=== PATIENT | female | born 1995 | race Caucasian/White ===

== ENCOUNTER 2019-08-27 10:22 | Outpatient (CLI) | payer OTHER, SELFPAY ==
[2019-08-27 10:59] LABS: Basophils Absolute Auto 0.1 K/mm3 (0.0-0.1); Basophils Percent Auto 0.7 % (0.2-1.2); Eosinophils Absolute Auto 0.1 K/mm3 (0-0.3); Eosinophils Percent Auto 1.2 % (0-4.4); Hematocrit 41.9 % (37.0-47.0); Hemoglobin 14.2 g/dL (12.0-15.0); Immature Granulocyte Absolute 0.04 K/mm3 (0.00-0.031); Immature Granulocyte Percent A 0.5 % (0-0.5); Mean Corpuscular HGB Conc 33.9 g/dl (32-36); Mean Corpuscular Hemoglobin 29.6 pg (26-34); Mean Corpuscular Volume 87.5 fl (80-100); Mean Platelet Volume 10.3 fl (7.4-10.4); Monocytes Absolute Auto 0.4 K/mm3 (0.1-0.6); Neutrophils Absolute Auto 4.8 K/mm3 (1.3-6.7); Neutrophils Percent Auto 65.6 % (45.5-73.1); Platelet Count Result 249 k/mm3 (150-375); Red Blood Count 4.79 M/mm3 (4.2-5.4); Red Cell Distribution Width 12.4 % (11.5-14.5); White Blood Count 7.3 K/mm3 (4.5-10.0)
[2019-08-27 11:07] LABS: Add Urine Microscopic? YES; Appearance Urine Clear (Clear); Bacteria Urine Trace /hpf; Bilirubin Urine Negative (Negative); Blood Urine Negative (Negative); Color Urine Straw (Yellow); Glucose Urine UA Negative (Negative); Ketones Urine Negative (Negative); Leukocyte Esterase Ur Negative LEU/UL (NEGATIVE); Mucus Urine Rare /lpf; Nitrate Urine Negative (Negative); Protein Urine Negative (Negative); RBC Urine 0-2 /hpf (0-2); Specific Grav Ur 1.015 (1.001-1.035); Squamous Epithelial Cell Urine Few /hpf (Few); Urobilinogen Urine Negative mg/dL (<2.0); WBC Urine 0-3 /hpf (0-3)
[2019-08-27 11:19] LABS: Alanine Aminotransferase 15 U/L (4-35); Albumin Level 4.9 g/dL (3.5-5.1); Alkaline Phosphatase 68 U/L (38-126); Aspartate Amino Transferase 21 U/L (14-36); Bilirubin,Total 0.4 mg/dL (0.2-1.3); Blood Urea Nitrogen 13 mg/dL (7-17); Calcium 9.3 mg/dL (8.4-10.2); Carbon Dioxide 28 mmol/L (22-30); Chloride 101 mmol/L (98-107); Cholesterol 156 mg/dL (0-200); Estimated Glomerular Filt Rate > 60; Glucose 89 mg/dL (65-105); HDL Direct 48 mg/dL; Potassium 4.1 mmol/L (3.4-5.0); Sodium 137 mmol/L (137-145); Triglycerides 70 mg/dL (<150)
[2019-08-27 11:30] LABS: LDL Cholesterol Direct 85 mg/dL
[2019-08-27 12:12] LABS: Iron 98 ug/dL (37-170)
[2019-08-27 12:23] LABS: Percent Iron Saturation 24 % (20-50)
[2019-08-27 12:31] LABS: Free T4 Free Thyroxine 0.98 ng/mL (0.78-2.19)
[2019-08-27 14:51] LABS: Hemoglobin A1C 4.7 % (<5.7)
[2019-08-30 21:20] LABS: C-Peptide 1.13 ng/mL (0.80-3.85)
[2019-08-31 03:22] LABS: Insulin Level Total 5.8 uIU/mL (<=19.6)
== END 2019-08-27 10:23 | disposition home or self-care (01) ==
PROVIDERS: PCP Internal Medicine; Visit Provider Internal Medicine
DX: N92.0 Excessive and frequent menstruation with regular cycle (principal); Z68.27 Body mass index [BMI] 27.0-27.9, adult; Z76.89 Persons encountering health services in other specified circumstances
CPT/HCPCS: 36415; 80053; 80061; 81001; 82728; 83036; 83525; 83540; 83550; 84439; 84443; 84681; 85025

== ENCOUNTER 2020-10-21 09:47 | Inpatient (IN) | payer OTHER, SELFPAY ==
[2020-10-21] VITALS (48 sets, daily range): BP systolic 84–122; BP diastolic 39–75; PULSE 53–92; RESP 16–18; TEMP 36.8–37.1; O2SAT 96–100; BMI 30.7
[2020-10-21] MEDS: LACTATED RINGERS 1,000 ML 125 ML IV CONT ×2 (11:10→11:43)
[2020-10-21 11:29] LABS: Basophils Percent Auto 0.3 % (0.2-1.2); Eosinophils Percent Auto 0.2 % (0-4.4); Hematocrit 36.2 % (37.0-47.0); Hemoglobin 12.6 g/dL (12.0-15.0); Immature Granulocyte Absolute 0.07 K/mm3 (0.00-0.031); Immature Granulocyte Percent A 0.8 % (0-0.5); Lymphocytes Percent Auto 18.4 % (18.3-44.2); Mean Corpuscular HGB Conc 34.8 g/dl (32-36); Mean Corpuscular Hemoglobin 30.1 pg (26-34); Mean Corpuscular Volume 86.4 fl (80-100); Mean Platelet Volume 11.3 fl (7.4-10.4); Monocytes Absolute Auto 0.5 K/mm3 (0.1-0.6); Monocytes Percent Auto 5.8 % (2.6-8.5); Neutrophils Absolute Auto 6.5 K/mm3 (1.3-6.7); Neutrophils Percent Auto 74.5 % (45.5-73.1); Platelet Count Result 160 k/mm3 (150-375); Red Blood Count 4.19 M/mm3 (4.2-5.4); Red Cell Distribution Width 12.8 % (11.5-14.5); White Blood Count 8.7 K/mm3 (4.5-10.0)
--- NOTE | 2020-10-21 11:33 | LDADM ---
This patient, Damon Pacheco [facility], was admitted to Labor/Delivery/Recovery 106 on 10/21/20 at 09:47. Plans for labor, pain management and were discussed with patient. Patient/family oriented to hospital policies and general routines including ID bracelet, bed and alarms, visiting hours, pain management, procedures, bathroom and other care routines, personal items, smoking policy, room service/diet and guest tray routines, security routines, and visiting hours. Patient/Family are encouraged to report perceived risks to care and to ask questions if they do not understand what they are told or what they should do. See OBIX for further documentation.
[2020-10-21] MEDS: fentaNYL CITRATE INJ (*CRX) 100 MCG/2 ML VIAL IV PUSH (11:42)
--- NOTE | 2020-10-21 12:20 | WPDANESEPP ---
Anes - Eval Pre Procedure Date/Time: 10/21/20 12:20 Pre Op Diagnosis: Labor Patient Data Age: 25 Gender: F Height: 1.63 m Weight: 81.3 kg Last Vital Signs Pulse 77 10/21/20 12:19 BP 102/67 10/21/20 12:19 Pulse Ox 97 10/21/20 12:19 Allergies Allergy/AdvReac Type Severity Reaction Status Date / Time No Known Allergies Allergy Verified 11/24/19 15:07 Home Medications Medication Instructions Recorded Confirmed Type PNV cmb#95-ferrous fumarate-FA 1 tablet PO DAILY 10/07/20 10/21/20 History [] Laboratory Tests 10/21/20 10/21/20 11:05 11:05 WBC 8.7 K/mm3 K/mm3 (4.5-10.0) RBC 4.19 M/mm3 L M/mm3 (4.2-5.4) Hgb 12.6 g/dL g/dL (12.0-15.0) Hct 36.2 % L % (37.0-47.0) MCV 86.4 fl fl (80-100) MCH 30.1 pg pg (26-34) MCHC 34.8 g/dl g/dl (32-36) RDW 12.8 % % (11.5-14.5) Plt Count 160 k/mm3 k/mm3 (150-375) MPV 11.3 fl H fl (7.4-10.4) Immature Gran % (Auto) 0.8 % H % (0-0.5) Neut % (Auto) 74.5 % H % (45.5-73.1) Lymph % (Auto) 18.4 % % (18.3-44.2) [place] % (Auto) 5.8 % % (2.6-8.5) Eos % (Auto) 0.2 % % (0-4.4) Baso % (Auto) 0.3 % % (0.2-1.2) Lymph # (Auto) 1.60 K/mm3 K/mm3 (0.9-3.2) [place] # (Auto) 0.5 K/mm3 K/mm3 (0.1-0.6) Eos # (Auto) 0.0 K/mm3 K/mm3 (0-0.3) Baso # (Auto) 0.0 K/mm3 K/mm3 (0.0-0.1) Abs Immat Gran (auto) 0.07 K/mm3 H K/mm3 (0.00-0.031) Absolute Neuts (auto) 6.5 K/mm3 K/mm3 (1.3-6.7) Absolute Nucleated RBC 0.0 K/mm3 K/mm3 (0.0-0.012) Nucleated RBC % 0.0 % % (0.0-0.2) RPR Pending Patient hx anesthesia problems: none Family hx anesthesia problems: none [facility] Past Medical History Medical History BMI 27.0-27.9,adult Encounter to establish care Excessive vaginal bleeding Tobacco abuse Surgical History Surgical History Post corneal transplant Family History Family History Mother Alive and well Father Alive and well Per Pt - ??. No real contact. Sibling Alive and well (2) 1/2 sibs. Social History Social History Smoking status: Never smoker Tobacco type: cigarettes Second hand tobacco smoke exposure: Yes Additional smoking assessment comments: 2-3 cigarettes per day. Alcohol intake: current Alcohol use details: social ETOH. Substance use: never Gender identity (if verbalized by the patient): Female Spiritual care concerns: No Exam Day of Procedure 10/21/20 12:20 Patient weight: obese Heart: regular rate and rhythm Lungs: normal air movement Airway: Mallampati scale class II Neurological: alert and oriented
[2020-10-21] MEDS: PHENYLEPHRINE 1,000 MCG/10 ML SYRINGE 100 MCG IV PUSH ×3 (12:35→13:13)
--- NOTE | 2020-10-21 13:05 | WPDOBADMIT ---
Obstetrics - Admit Note Admission Note: record reviewed. Additions to the history and/or subsequent changes in the physical findings follow. 25 y/o at 38 1/7 weeks with contractions. GBS neg. Now comfortable with epidural. AVSS NST reactive TOCO contractions every 2-3 min ABD soft, nontender, gravid, vertex EXT nontender Cervix 7/90/0. AROM with clear fluid. A: IUP at term with labor. P: Anticipate .
--- NOTE | 2020-10-21 13:51 | PM.OBPRVD ---
OB - Delivery Note Procedure Delivery date: 10/21/20 Procedure: NVSD Intrapartal events: None Induction method: none Delivery augmentation: rupture of membranes Delivery monitor: external FHT and external uterine Route of delivery: Laceration Description: Labial (bilateral) Delivery repair: vicryl (3-0) Specimen: Yes (cord blood) Quantitative Blood Loss (ml): 85 Anesthesia type: Epidural Disposition: PACU Complications: None Narrative: 25 y/o at 38 1/7 weeks gestation who presented to the hospital from the office, complaining of contractions. Labor was diagnosed. She received an epidural for pain control. Amniotomy was performed with return of clear fluid. Her labor progressed and her cervix dilated completely. She pushed with good effort and delivered the 's head to the perineum, followed by the body. The nose and mouth were bulb suctioned. After a delay, the cord was clamped and cut. The infant was handed off the field. Cord blood was collected. The placenta delivered spontaneously and was grossly normal in appearance. The usual 3 vessel cord was noted. Bilateral labial lacerations were sustained. These were reapproximated using 3 0 Vicryl in interrupted figure of eight fashion. Excellent hemostasis resulted as did excellent reapproximation of the normal anatomy. Needle and instrument counts were correct. The patient was taken to recovery room in stable condition. The went to the nursery in stable condition. I was present and scrubbed for the entire delivery. Baby Date of : 10/21/20 Time of : 13:36 Weeks of gestation at delivery: 38 gender: Male Weight (pounds): 7 Weight (ounces): 1 presentation: vertex position: Right Occiput Anterior Placenta delivery description: Spontaneous and Normal Configuration cord vessel description: 3 Vessels and Delayed Cord Clamping score one minute: 8 score five minutes: 9
[2020-10-21] MEDS: OXYTOCIN 30 UNITS/NS 500 ML 30 UNITS/500 ML BAG 125 UNITS IV CONT (14:13)
--- NOTE | 2020-10-21 16:30 | PC.NURSE ---
Patient transferred to post room #288 via wheelchair. Support person present. Oriented to unit, room, information board, rooming in, admission packet and security measures. Patient verbalizes understanding.
--- NOTE | 2020-10-21 16:56 | PM.OBDSVD ---
DS: Admitting Diagnosis Admitting Diagnosis Admitting Diagnosis: IUP at 38 1/7 weeks Labor DS: Discharge Diagnosis Discharge Diagnosis (1) (normal spontaneous vaginal delivery): Code(s): O80 - Encounter for full-term uncomplicated delivery Status: Acute OB - DS: Summary OB Procedures : None OB Procedures Intrapartum: Spontaneous Vag Delivery OB Procedures: : None DS: Data Data Completed and Pending Labs on day of discharge: Labs from last 24 hours 10/21/20 10/21/20 10/21/20 11:05 11:05 11:05 WBC 8.7 RBC 4.19 L Hgb 12.6 Hct 36.2 L MCV 86.4 MCH 30.1 MCHC 34.8 RDW 12.8 Plt Count 160 MPV 11.3 H Immature Gran % (Auto) 0.8 H Neut % (Auto) 74.5 H Lymph % (Auto) 18.4 [place] % (Auto) 5.8 Eos % (Auto) 0.2 Baso % (Auto) 0.3 Lymph # (Auto) 1.60 [place] # (Auto) 0.5 Eos # (Auto) 0.0 Baso # (Auto) 0.0 Abs Immat Gran (auto) 0.07 H Absolute Neuts (auto) 6.5 Absolute Nucleated RBC 0.0 Nucleated RBC % 0.0 RPR Pending Blood Type O Positive Antibody Screen Negative Discharge Plan Discharge Attending physician on discharge: Raffaele Donohue Discharging Clinician: Raffaele Donohue Patient Disposition: Home, Self-Care Activity: may shower, no straining and pelvic rest Diet: regular Discharge Instructions: Education: Mom and Baby Guide Given to: Mother Follow-Up: Call your delivering provider's office for an appointment to be seen in: 6 Weeks Mom and baby should come to the [facility] for the follow-up appointment. Appointment Date/Time: October 24, 2020 at 8:00 am What to expect at your follow-up visit: Physical Assessment Call [phone] if you are unable to keep your appointment time. BREAST CARE: * Wear a snug supportive bra. * For engorgement discomfort: Breast Feeding: * Apply warm moist washcloths * Express milk as needed to relieve engorgement * Wear loose clothing * For sore nipples: * Identify correct latch-on * Apply warm moist washcloths before and after nursing * Air dry nipples after nursing * May apply Lansinoh cream to nipples EPISIOTOMY/PERINEAL CARE: * Until bleeding stops, use your chris bottle after urinating * Change your pad frequently throughout the day * You may take sitz baths several times a day (fill your bathtub with warm water and soak for 20 minutes.) Do NOT bathe in the water * No tub baths until seen by your physician - You may shower ACTIVITY: * Rest as much as possible. * Do not exercise or lift anything heavier than your baby (such as laundry or other children.) * Avoid stairs or driving as much as possible. * Do not put anything into the vagina. No douching, tampons, or sexual activity until seen by physician. NOTIFY PHYSICIAN IF YOU HAVE ANY QUESTIONS OR IF ANY OF THE FOLLOWING SYMPTOMS OCCUR: * If your episiotomy or incision becomes red, swollen, or more painful than what you have experienced in the hospital. * If your vaginal bleeding becomes foul smelling. * If your vaginal bleeding becomes more heavy than a period or if your bleeding changes from pink to bright red. However, you may pass an occasional walnut-sized clot once or twice for the first week . * If you experience a sharp, shooting pain in you calves. * If you discover a hard, reddened area on your breast or if you experience flu-like symptoms. DIET: * Eat regular, well-balanced meals. * Drink plenty of fluids daily. If , drink to thirst.Call or return if temperature above 100.4? F, increased abdominal pain, increased vaginal bleeding or any new problems. Stand Alone Forms: General Discharge Information Follow-up/Referrals: Raffaele Donohue MD [Physician] - 6 Weeks Discharge Medications: New ibuprofen 600 mg tablet 600 mg PO Q6H
[2020-10-21] MEDS: IBUPROFEN 600 MG TABLET PO (18:53)
[2020-10-22 00:10] VITALS: BP 122/69; PULSE 74; RESP 16; TEMP 36.2; O2SAT 100
[2020-10-22] MEDS: IBUPROFEN 600 MG TABLET PO ×2 (01:00→08:21)
[2020-10-22 04:54] VITALS: BP 100/56; PULSE 77; RESP 18; TEMP 36.3; O2SAT 99
[2020-10-22 05:07] LABS: Hematocrit 32.4 % (37.0-47.0)
--- NOTE | 2020-10-22 07:49 | PM.DS ---
DS: Admitting Diagnosis Admitting Diagnosis Admitting Diagnosis: term iup labor DS: Summary Hospital Course Hospital Course: The patient was admitted in active labor. She underwent spontaneous vaginal delivery which was unremarkable. Her hospital course was unremarkable. She remained afebrile. She was up, voiding without difficulty, ambulating, breast-feeding in general without complaint. Time Spent with Patient Time attestation: Total time spent providing and/or coordinating discharge services: Exam Const: General: no acute distress Eyes: General: appearance normal, both eyes and all related structures Neck: Neck: supple and no JVD Thyroid: thyroid normal Resp: Effort & Inspection: normal respiratory effort Auscultation: clear to auscultation bilaterally Cardio: Rate: regular rate Rhythm: regular rhythm GI: Inspection: non-distended GI Palp: Yes Soft to palpation, No Tenderness to palpation present (GI) and No Guarding due to palpation present (GI) Auscultation: normal bowel sounds : General: Yes bladder normal to palpation External Female Exam: normal external appearance Speculum Exam - Vagina: normal vaginal discharge and No vaginal bleeding Speculum Exam - Cervix: nontender Bimanual exam- vagina & uterus: bladder normal to palpation and No Cervical tenderness present OB/external & speculum: No vaginal bleeding Skin: General skin exam: no rashes or lesions noted Extrem: General: normal to inspection and no edema Psych: Mental Status: mental status grossly normal Affect: normal affect DS: Data Data Completed and Pending Labs on day of discharge: Labs from last 24 hours 10/22/20 10/21/20 10/21/20 04:42 11:05 11:05 WBC RBC Hgb 11.0 L Hct 32.4 L MCV MCH MCHC RDW Plt Count MPV Immature Gran % (Auto) Neut % (Auto) Lymph % (Auto) [place] % (Auto) Eos % (Auto) Baso % (Auto) Lymph # (Auto) [place] # (Auto) Eos # (Auto) Baso # (Auto) Abs Immat Gran (auto) Absolute Neuts (auto) Absolute Nucleated RBC Nucleated RBC % RPR Pending Blood Type O Positive Antibody Screen Negative 10/21/20 11:05 WBC 8.7 RBC 4.19 L Hgb 12.6 Hct 36.2 L MCV 86.4 MCH 30.1 MCHC 34.8 RDW 12.8 Plt Count 160 MPV 11.3 H Immature Gran % (Auto) 0.8 H Neut % (Auto) 74.5 H Lymph % (Auto) 18.4 [place] % (Auto) 5.8 Eos % (Auto) 0.2 Baso % (Auto) 0.3 Lymph # (Auto) 1.60 [place] # (Auto) 0.5 Eos # (Auto) 0.0 Baso # (Auto) 0.0 Abs Immat Gran (auto) 0.07 H Absolute Neuts (auto) 6.5 Absolute Nucleated RBC 0.0 Nucleated RBC % 0.0 RPR Blood Type Antibody Screen Discharge Plan Discharge Attending physician on discharge: Raffaele Donohue Discharging Clinician: Raffaele Donohue Patient Disposition: Home, Self-Care Activity: may shower, no straining and pelvic rest Diet: regular Discharge Instructions: Call or return if temperature above 100.4? F, increased abdominal pain, increased vaginal bleeding or any new problems. Stand Alone Forms: General Discharge Information Follow-up/Referrals: Raffaele Donohue MD [Physician] - 6 Weeks Discharge Medications: New ibuprofen 600 mg tablet 600 mg PO Q6H PRN (Reason: cramps) Qty: 30 RF: 0 Continued PNV cmb#95-ferrous fumarate-FA [] 28 mg iron- 800 mcg Tablet 1 tablet PO DAILY RF: 0 Date of admission: 10/21/20 09:47 Primary Care Provider: PHYSICIAN,ADJUNCT MATHEMATICS INSTRUCTOR Admitting Provider: Raffaele Donohue Attending physician on admission: Raffaele Donohue Condition: Stable
[2020-10-22 08:15] VITALS: BP 98/67; PULSE 72; RESP 16; TEMP 37.2; O2SAT 95
[2020-10-22] MEDS: MULTIVIT/MIN/PREN/FOL AC/IRON TABLET 1 TAB PO (08:21)
[2020-10-22 12:00] VITALS: BP 101/65; PULSE 70; RESP 18; TEMP 36.8; O2SAT 100
--- NOTE | 2020-10-22 14:07 | WPDANLDPN2 ---
Anes-Prog Note L&D Date/Time: 10/22/20 14:07 Comfortable throughout: labor and delivery Neuraxial method: epidural Epidural/Spinal procedure site: clean & non-tender Neuro status: Neuro function grossly intact. Cardiovascular status: normal Respiratory status: normal Airway patency: baseline Mental status: baseline Post-Op hydration status: normal Vital Signs: Last Vital Signs Temp 36.8 C 10/22/20 12:00 Pulse 70 10/22/20 12:00 Resp 18 10/22/20 12:00 BP 101/65 10/22/20 12:00 Pulse Ox 100 10/22/20 12:00 Pain score (VAS): 04/24 Post-procedural complaints: none Patient feedback: Patient satisfied with anesthetic care.
--- NOTE | 2020-10-22 14:14 | PC.NURSE ---
Patient instructed on viewing the discharge video Mother & Baby Care, The First Two Weeks . Patient was given the opportunity and encouraged to ask questions. Patient verbalized understanding of information shared and has been given the mother/baby guide for home reference.
[2020-10-24 07:57] LABS: Rapid Plasma Reagin Non-Reactive (NonReactive)
[2020-10-24 08:09] VITALS: BP 105/67; PULSE 75; RESP 18; TEMP 37; O2SAT 100
== END 2020-10-22 14:40 | disposition home or self-care (01) | DRG 807 ==
LOC: ANHOB2 10-22 11:35 → ANHLDR 10-25 11:19 → ANHOB2 10-25 11:19
PROVIDERS: Admitting Provider Obstetrics & Gynecology; Visit Provider Obstetrics & Gynecology
DX: O70.0 First degree perineal laceration during delivery (principal); Z37.0 Single live birth; Z3A.38 38 weeks gestation of pregnancy
CPT/HCPCS: 36415; 85014; 85018; 85025; 86592; 86850; 86900; 86901; A9270; J2370; J2590; J2795; J3010; J7120

== ENCOUNTER 2023-10-10 10:18 | Outpatient (CLI) | payer OTHER, SELFPAY ==
--- NOTE | ~2023-10-10 | XR_ITS ---
XR foot RT min 3V Ordering provider: Lauri Ambrocio, LENGTH CONTROL TESTER History: . medial foot pain x 3 days, NKI . Comparison: None. FINDINGS: BONES: No acute fracture or dislocation. JOINT SPACES: Normal. No tarsal coalition. SOFT TISSUES: Normal. IMPRESSION: No acute osseous abnormality of the right foot. Reviewed, dictated and finalized at location A.
== END 2023-10-10 10:19 | disposition home or self-care (01) ==
LOC: CHSIMG 10:22
PROVIDERS: PCP Registered Nurse; Visit Provider Registered Nurse
DX: M79.671 Pain in right foot (principal)
CPT/HCPCS: 73630